=== PATIENT | male | born 1995 | race Two or more races ===

== ENCOUNTER 2024-11-13 16:55 | Inpatient (IN) | payer MEDICAID, SELFPAY ==
[2024-11-13] VITALS (10 sets, daily range): BP systolic 86–120; BP diastolic 49–72; PULSE 60–97; RESP 14–100; TEMP 32.2–36.6; O2SAT 95–100; BMI 22.9
--- NOTE | 2024-11-13 17:04 | EDNOTE_ITS ---
Altered Mental Status RME/HPI General Chief Complaint: Altered Mental Status Stated Complaint: LOW BLOOD SUGAR Time Seen by Provider: 11/13/24 17:05 Arrival date/time: 11/13/24 16:55 Limitations: no limitations RME / HPI RME / HPI narrative: 28 year old male presents to the ED BIBA for evaluation of altered mental status. According to the medics, the patient's family found him unresponsive in his room and attempted to wake him for about 30 minutes before calling 911. Upon arrival, the patient was noted to be wet, which the family state was from placing him in the shower. His blood sugar was checked and found to be low. He was started on D10, after which he became more responsive, though still lethargic. The patient admitted to taking a bottle of naproxen, but the exact quantity and timing are unclear. He also admits to using cocaine. The family reported that he drank 30 beers yesterday. No further history is obtainable at this time. Related Data Allergies Allergy/AdvReac Type Severity Reaction Status Date / Time No Known Allergies Allergy Verified 11/13/24 17:13 Review of Systems Review of Systems ROS Unobtainable: unobtainable due to mental status Past Medical History Past Medical History CARDIAC: Negative Congestive Heart Failure RESPIRATORY: Negative Chronic Obstructive Pulmonary Disease (COPD) GENITOURINARY: Negative Renal Disease ENDOCRINE: Negative Diabetes Mellitus Type 1 or Diabetes Mellitus Type 2 Social History SMOKING STATUS: Current every day smoker ED Exam General Limitations: Present no limitations General appearance: Present other (Lethargic, opens eyes to questioning) Head Head exam: Present atraumatic Eye Eye exam: Present EOMI and other (Pupils 2mm bilaterally); Absent nystagmus ENT ENT exam: Present normal exam, normal oropharynx and mucous membranes moist Neck Neck exam: Present normal inspection, full ROM and trachea midline Chest Chest inspection: Present normal inspection and symmetric chest wall rise Respiratory Respiratory exam: Present normal lung sounds bilaterally Cardiovascular Cardiovascular exam: Present regular rate, normal rhythm and normal heart sounds Abdominal Exam Abdominal exam: Present soft and normal bowel sounds Extremities Exam Extremities exam: Present normal inspection and full ROM Back Exam Back exam: Present normal inspection and full ROM Neurological Exam Neurological exam: Present CN II-XII intact and other (Lethargic, responds to voice ) Psychiatric Psychiatric exam: Present normal affect and normal mood Skin Skin exam: Present warm, dry, intact and normal color Course Quality Measures none Orders Category Date Time Status Bedside Blood Glucose Q4H Care 11/13/24 17:05 Active Elastic Attacher Zigzag NOW Care 11/13/24 17:05 Active Continuous Pulse Oximetry NOW Care 11/13/24 17:05 Completed EKG (ED ONLY) *Do not use* NOW Care 11/13/24 17:05 Completed In and Out Catheter X1 Care 11/13/24 18:06 Completed Initiate Warming Therapy NOW Care 11/13/24 17:13 Active Insert IV NOW Care 11/13/24 17:05 Active Diet Full Liquid Diet 11/13/[address] head/brain wo con Stat Exams 11/13/24 17:07 Taken CXRP [XR chest 1V portable] Stat Exams 11/13/24 17:11 Completed EKG (ED Only) Stat Exams 11/13/24 17:05 Draft ABG [Arterial Blood Gas] Stat Lab 11/13/24 19:53 Completed Acetaminophen Stat Lab 11/13/24 17:30 Completed Acetone [Beta Hydroxybutyrate] Stat Lab 11/13/24 17:30 Completed Alcohol, Blood Medical Stat Lab 11/13/24 17:30 Completed Arterial Blood Gas Stat Lab 11/13/24 17:10 Completed CBC Stat Lab 11/13/24 17:30 Completed Comprehensive Metabolic Panel Stat Lab 11/13/24 17:30 Completed Drug Screen,Urine Stat Lab 11/13/24 18:10 Completed Magnesium Stat Lab 11/13/24 17:30 Completed Partial Thromboplastin Time Stat Lab 11/13/24 17:30 Completed Prothrombin Time with INR Stat Lab 11/13/24 17:30 Completed Salicylate Stat Lab 11/13/24 17:30 Completed Troponin I Stat Lab 11/13/24 17:30 Completed Urinalysis Stat Lab 11/13/24 18:10 Completed ALBUTEROL RT 3ml [Proventil Rt 3ml] Med 11/13/24 17:08 Discontinued 5 mg INH X1 ONE Dextrose 10%-Water 1000 ml [D10w 1000 ml] 1,000 ml Med 11/13/24 17:12 Discontinued IV 100 mls/hr Dextrose 5%-Water [D5w] 500 ml Med 11/13/24 17:45 Discontinued Sodium Bicarb 8.4% 50ml Vial* 88.23 meq IV 100 mls/hr Dextrose 5%-Water [D5w] 500 ml Med 11/13/24 17:45 Discontinued Sodium Bicarb 8.4% 50ml Vial* 88.23 meq IV 100 mls/hr Dextrose 5%-Water [D5w] 500 ml Med 11/14/24 11:24 Discontinued Sodium Bicarb 8.4% 50ml Vial* 88.23 meq IV 100 mls/hr Dextrose 50% Syr [D50w Syringe Abboject] Med 11/13/24 18:45 Discontinued 50 ml IVP X1 ONE Famotidine Inj [Pepcid Inj] Med 11/13/24 17:28 Discontinued 20 mg IVP X1 ONE Pantoprazole Inj [Protonix Inj] Med 11/13/24 17:28 Discontinued 40 mg IVP X1 ONE Sodium Bicarb 8.4% SYR Med 11/13/24 18:05 Discontinued 50 ml IV X1 ONE Sodium Bicarb 8.4% SYR Med 11/13/24 18:14 Discontinued 50 ml IV X1 ONE Sodium Chloride 0.9% 1000 ml [Ns] 1,000 ml Med 11/13/24 17:09 Discontinued IV 999 mls/hr Oxygen Delivery NOW RT 11/13/24 17:05 Active Vital Signs Vital signs: Vital Signs Temperature 90 F L 11/13/24 17:01 Pulse Rate 73 11/13/24 17:01 Respiratory Rate 18 11/13/24 17:01 Blood Pressure 86/52 L 11/13/24 17:01 Pulse Oximetry (%) 100 11/13/24 17:01 Oxygen Delivery Method Nasal Cannula 11/13/24 17:01 Oxygen Flow Rate 2 11/13/24 17:01 Pulse ox is 100% on 2L nasal cannula which is adequate. Altered Mental Status MDM Narrative MDM Narrative:: Marleny Morales am scribing for and in the presence of Dr. Quintero. 1800: Patient signed out to Dr. Ralph pending labs, reassessment, and final disposition. Patient data External records reviewed:: EMS form Clinical information provided by:: EMS Social determinants that could affect healthcare access:: substance use (cocaine use ) Patient has the following chronic illnesses:: None reported How is presenting disease/condition affected by chronic disease/condition?: no chronic disease Evaluation data The following diagnostics were reviewed and interpreted by me:: lab results, radiology exam(s) and EKG tracing(s) (11/13/2024 @ 16:56. Sinus rhythm, rate 66, no STEMI, prolonged QT interval, [place] 145ms, QRS 106ms, QT/QTc 490/503 ) Lab and/or radiology exams considered but not ordered:: None Interpretation Summary: Ordering Physician: Esteban Quintero MD Date of Service: 11/13/24 Procedure(s): XR chest 1V portable Accession Number(s): [id number] cc: Esteban Quintero MD; Raheem Agudelo MD; Haris Abbott MD~ Examination: AP chest single view TECHNIQUE: AP portable supine chest single view Date and time: November 13, 2024 1738 hours INDICATIONS: Coughing and shortness of breath today FINDINGS: Normal heart size. Mild elevation right hemidiaphragm. No pneumonia or pulmonary edema. The osseous structures are intact IMPRESSION: No active disease Dictated By: Haris Abbott MD Signed By: <Electronically signed by Haris Abbott MD in OV> 11/13/24 1745 Medications / Prescriptions Medications or Prescriptions considered but not ordered:: None Medication administrations:: Medication Administration History Acetaminophen (Acetaminophen 325 Mg Tablet) 650 mg PO Q6H PRN PRN Reason: pain and Fever >100.4 Stop: 12/13/24 19:52 Dextrose (Dextrose 50%-Water Inj 50 Ml Syringe) 25 ml IV Q15MIN PRN PRN Reason: BG 50-70 responsive npo pt Stop: 12/13/24 20:28 Dextrose (Dextrose 50%-Water Inj 50 Ml Syringe) 50 ml IV Q15MIN PRN PRN Reason: BG <50 OR BG <70 & pt unresponsive Stop: 12/13/24 20:28 Glucagon (Glucagon Inj 1 Mg Vial) 1 mg IM Q15MIN PRN PRN Reason: BG <70, and no IV access Lactated Ringer's (Lactated Ringers) 1,000 mls @ 100 mls/hr IV .Q10H REBECCA Stop: 11/14/24 16:29 Ondansetron HCl (Ondansetron Inj 2 Mg/Ml Inj 2 Ml) 4 mg IVP Q6H PRN; Protocol PRN Reason: NAUSEA OR VOMITING Stop: 12/13/24 19:52 Pantoprazole Sodium (Pantoprazole Inj 40 Mg Vial) 40 mg IVP QDAY REBECCA Stop: 12/14/24 08:59 Discontinued Medications Albuterol (Albuterol Rt 2.5 Mg/3 Ml Nebu) 5 mg INH X1 ONE Stop: 11/13/24 17:09 Last Admin: 11/13/24 17:22 Dose: 5 mg Documented By: JV Dextrose (Dextrose 50%-Water Inj 50 Ml Syringe) 50 ml IVP X1 ONE Stop: 11/13/24 18:46 Last Admin: 11/13/24 18:51 Dose: 50 ml Documented By: EF Famotidine (Famotidine Inj 10 Mg/Ml Vial 2 Ml) 20 mg IVP X1 ONE Stop: 11/13/24 17:29 Last Admin: 11/13/24 17:49 Dose: 20 mg Documented By: EF Sodium Chloride (Ns) 1,000 mls @ 999 mls/hr IV .Q1H1M ONE Stop: 11/13/24 18:09 Last Infusion: 11/13/24 18:39 Dose: Infused Documented By: Admin: 11/13/24 17:38 Dose: 999 mls/hr Documented By: EF Dextrose (D10w 1000 Ml) 1,000 mls @ 100 mls/hr IV .Q10H REBECCA Stop: 11/14/24 03:11 Last Admin: 11/13/24 17:38 Dose: 100 mls/hr Documented By: EF Sodium Bicarbonate 88.23 meq/ (Dextrose) 588.23 mls @ 100 mls/hr IV .Q5H53M REBECCA Stop: 12/14/24 11:23 Sodium Bicarbonate 88.23 meq/ (Dextrose) 588.23 mls @ 100 mls/hr IV .Q5H53M REBECCA Stop: 11/14/24 11:23 Sodium Bicarbonate 88.23 meq/ (Dextrose) 588.23 mls @ 100 mls/hr IV .Q5H53M REBECCA Stop: 11/14/24 11:23 Last Admin: 11/13/24 18:16 Dose: Not Given Documented By: EF Non-Admin Reason: Cancelled by Provider Dextrose (D10w 1000 Ml) 1,000 mls @ 50 mls/hr IV .Q20H REBECCA Stop: 11/14/24 15:56 Pantoprazole Sodium (Pantoprazole Inj 40 Mg Vial) 40 mg IVP X1 ONE Stop: 11/13/24 17:29 Last Admin: 11/13/24 17:49 Dose: 40 mg Documented By: KAREN Sodium Bicarbonate (Sodium Bicarb Inj 8.4% Syr 50 Ml Syringe) 50 ml IV X1 ONE Stop: 11/13/24 18:06 Last Admin: 11/13/24 18:16 Dose: 50 ml Documented By: EDER Sodium Bicarbonate (Sodium Bicarb Inj 8.4% Syr 50 Ml Syringe) 50 ml IV X1 ONE Stop: 11/13/24 18:15 Last Admin: 11/13/24 18:30 Dose: 50 ml Documented By: EDER See above Consultations Consultation(s) initiated? (list below): No Diagnosis Differential diagnosis altered mental status: alcoholic intoxication, altered mental status, delirium, hypoglycemia, hyponatremia, sepsis and other (Overdose ) Most likely diagnosis given after review of the tests above:: Metabolic acidosis Drug overdose Polysubstance abuse Acute hypoglycemia Acute hypothermia Admission Indicated Admission indicated?: not indicated Admission Request Was there a request for admission?: No Disposition Plan Disposition Plan: other (specify) (Patient signed out to Dr. Ralph pending final disposition ) Critical Care Time Critical Care Time Critical Care Time: Yes Total Critical Care Time (min.): 60 Attestation: The high probability of sudden, clinically significant deterioration in the patient's condition required the highest level of my preparedness to intervene urgently. The services I provided to this patient were to treat and/or prevent clinically significant deterioration. Services included the following: chart data review, reviewing nursing notes and/or old charts, documentation time, supervisor home energy consultant collaboration regarding findings and treatment options, medication orders and management, direct patient care, vital sign assessments and ordering, interpreting and reviewing diagnostic studies and lab tests. Aggregate critical care time includes only time during which I was engaged in work directly related to the patient's care, as described above, whether at bedside or elsewhere in the Emergency Department. It did not include time spent performing other reported procedures or the services of residents, students, nurses or physician assistants. Discharge Plan Plan Patient Disposition: Admit Acute Care w/in Hospital Problem List Clinical Impression: Metabolic acidosis, Hypoglycemia, Drug overdose, Polysubstance abuse, Hypothermia
--- NOTE | 2024-11-13 17:05 | EKG_ITS ---
[facility] Test Date: 2024-11-13 Pat Name: CARLIE KUMARI Department: Room: - Gender: Male [employer] Case [employer]: : 1995 Requested By: Esteban Carter Order Number: [id number] Reading MD: Esteban Carter Measurements Intervals [place] Rate: 66 P: 74 [place]: 145 QRS: 75 QRSD: 106 T: 63 QT: 490 QTc: 515 Interpretive Statements SINUS RHYTHM MODERATE ST DEPRESSION [0.05+ mV ST DEPRESSION] PROLONGED QT INTERVAL CRITICAL TEST RESULT No previous ECG available for comparison /store/S0/[id number]/ecg/[id number].pdf
--- NOTE | 2024-11-13 17:05 | PC.NURSE ---
patient BIBA for possible overdose per ems on scene found an empty bottle of pills of naproxen. patients blood sugar on scene per ems read LOW . ems also states per family patient had about 30 beers yesterday
--- NOTE | 2024-11-13 17:07 | XR_ITS ---
Examination: CT brain head without contrast. 2-D sagittal coronal reconstructions Date and time of exam:November 13, 2024 1932 hours INDICATIONS: Altered mental status today CTDI: vol (mGy):49.7 DLP: (mGycm):744 Technique: Multiple CT axial sections of the brain have been obtained, 5 mm slice thickness. Contrast has not been administered. 2-D sagittal, coronal reconstructions have been obtained Low dose protocols were performed. One or more of the following dose reduction techniques were used; automated exposure control, adjustment of the mA and/or KV according to patient size, use of iterative reconstruction technique. Findings: No significant ventricular enlargement. Intra-axial or extra-axial hemorrhage density is not seen. No mass effect or midline shift Basal cisterns are not remarkable. Fourth ventricle is midline. Cranial vault intact. Impression: Negative for acute hemorrhage, mass effect or midline shift Advise clinical correlation and follow up accordingly
--- NOTE | 2024-11-13 17:11 | XR_ITS ---
Examination: AP chest single view TECHNIQUE: AP portable supine chest single view Date and time: November 13, 2024 1738 hours INDICATIONS: Coughing and shortness of breath today FINDINGS: Normal heart size. Mild elevation right hemidiaphragm. No pneumonia or pulmonary edema. The osseous structures are intact IMPRESSION: No active disease
[2024-11-13] MEDS: ALBUTEROL RT 2.5 MG/3 ML NEBU 5 MG INH (17:22)
--- NOTE | 2024-11-13 17:26 | PC.NURSE ---
poison control contacted spoke with dr herrera. per MD watch for Gi symptoms n/v, metabolic acidosis. keep bp and o2 sats up. give d50 bolus as needed and d10 drip as needed. if patient continues having recurrent episodes of hypoglycemic keep patient for observation 24hrs
[2024-11-13 17:28] LABS: Base Excess -15 (-3-3); HCO3 13 mEq/L (20-26); Inspired O2, VO2 Liters 2 L/min; O2 Saturation 99 % (91-98); PCO2 40 mmHg (32.0-48.0); PO2 169 mmHg (83-108)
[2024-11-13 17:32] LABS: Puncture Site Right Radial; pH, Arterial 7.13 (7.35-7.45)
[2024-11-13 17:33] LABS: Allen Test Not Performed
[2024-11-13 17:38] LABS: Beta Hydroxybutyrate 0.4 mmol/L (<0.6)
[2024-11-13] MEDS: DEXTROSE 10%-WATER 1000 ML 1,000 ML 100 ML IV (17:38)
[2024-11-13] MEDS: SODIUM CHLORIDE 0.9% 1000 ML 1,000 ML 999 ML IV (17:38)
[2024-11-13 17:41] LABS: Basophils # (Auto) 0.1 Thou/mm3 (0.0-0.2); Basophils % (Auto) 0 % (0-2.5); Eosinophils % (Auto) 0 % (0-10); Hematocrit 37.4 % (41.0-53.0); Hemoglobin 13.1 g/dL (13.5-16.0); Immature Granulocytes % (Auto) 2 % (0-0); Immature Granulocytes Auto 0.21 Thou/mm3 (0.00-0.00); Lymphocytes # (Auto) 2.9 Thou/mm3 (1.0-4.8); Lymphocytes % (Auto) 26 % (10-50); Mean Corpuscular Hemoglobin 33.3 pg (25.0-35.0); Mean Corpuscular Volume 95 fL (80-100); Monocytes # (Auto) 1.1 Thou/mm3 (0.0-0.8); Monocytes % (Auto) 9 % (0-12); Neutrophils # (Auto) 7.1 Thou/mm3 (1.8-7.7); Neutrophils % (Auto) 63 % (37-80); Nucleated Red Blood Cell % 0 /100 WBC (0); Platelet Count 210 Thou/mm3 (140-440); RDW Standard Deviation 47.5 fL (35.1-43.9); Red Blood Count 3.93 Miln/mm3 (4.50-5.90); White Blood Count 11.4 Thou/mm3 (3.8-10.6)
[2024-11-13] MEDS: FAMOTIDINE INJ 10 MG/ML VIAL 2 ML 20 MG IVP (17:49)
[2024-11-13] MEDS: PANTOPRAZOLE INJ 40 MG VIAL IVP (17:49)
[2024-11-13 17:52] LABS: INR 1.2 (0.9-1.3); Partial Thromboplastin Time 30.2 Seconds (22.0-36.0)
[2024-11-13 18:00] LABS: Acetaminophen < 2.0 mcg/mL (10.0-20.0); Alanine Aminotransferase 10 U/L (10-49); Albumin, Serum 3.7 gm/dL (3.5-5.0); Albumin/Globulin Ratio 1.7 (1.2-2.2); Alcohol, Blood Medical 166.7 mg/dL (0-10.0); Alkaline Phosphatase 95 U/L (46-116); Anion Gap 19 (7-16); BUN/Creatinine Ratio 4 Ratio (12-20); Bilirubin,Total 0.5 mg/dL (0.3-1.2); Blood Urea Nitrogen 6 mg/dL (9-23); Calcium 7.4 mg/dL (8.3-10.6); Calcium (Corrected) 7.6 mg/dL (8.5-10.1); Carbon Dioxide 15.1 mMol/L (20.0-31.0); Chloride 114 mMol/L (98-107); Creatinine (Component) 1.4 mg/dL (0.6-1.3); Estimated Creatinine Clearance 79.8 mL/min (>60); Globulin 2.2 gm/dL (2.3-3.5); Glucose 89 mg/dL (74-106); Magnesium 2.6 mg/dL (1.6-2.6); Osmolality,Calculated 290 (275-295); Potassium 3.4 mMol/L (3.4-5.1); Salicylate < 3.0 mg/dL; Sodium 148 mMol/L (136-145); Total Protein 5.9 gm/dL (5.7-8.2); Troponin I < 0.020 ng/mL (0.0-0.045); eGFR > 60 See Note
[2024-11-13 18:15] LABS: Collection Type, Urine Clean Catch
[2024-11-13] MEDS: Sodium Bicarb Inj 8.4% SYR 50 ML SYRINGE IV ×2 (18:16→18:30)
[2024-11-13 18:38] LABS: Bacteria,Urine Rare; Bilirubin,Urine Negative (Negative); Blood,Urine 2+ (Negative); Clarity,Urine Turbid (Clear/Hazy); Color,Urine Lt-Yellow (Lt Yel-Yel); Glucose, Urine 1+ (Negative); Granular Casts,Urine 1 /hpf (0-1); Hyaline Casts,Urine < 1 /hpf (0-1); Ketones,Urine Negative (Negative); Leukocyte Esterase,Urine Negative (Negative); Nitrite,Urine Negative (Negative); Protein,Urine 2+ (Neg - Trace); RBC,Urine 2 /hpf (0-3); Specific Gravity,Urine 1.013 (1.001-1.035); Squamous Epithelial Cell,Urine 2 /hpf (0-5); Urobilinogen,Urine Negative mg/dL (0.0-1.0); WBC,Urine 12 /hpf (0-5)
--- NOTE | 2024-11-13 18:44 | PD.EDADDENDU ---
Emergency Room Addendum <Libra Lacy - Last Filed: 11/13/24 21:18> Addendum Narrative: I took over the care from previous shift physician at 6 PM on 11/13/2024. See previous notes for complete H & P and ED course. I reviewed all diagnostic test results. Sinus rhythm (66 bpm) with nonspecific ST-T changes.? Magnus Ralph MD My interpretation of the chest x-ray is NAD. My review of the Head/Brain CT report is NAD. Advise clinical correlation and follow up accordingly. Blood tests and urine tests show positive cocaine and ethyl alcohol 166.7. ABG pH 7.13, AbG pO2 169, ABG HCO3 13, ABG Base Excess -15. WBC 11.4, RBC 3.93, Hgb 13.1, Hct 37.4. Sodium 148, Chloride 114, Carbon Dioxide 15.1, Anion Gap 19, BUN 6, Creatinine 1.4, BUN/Creatinine Ratio 4, Calcium 7.4, Corrected Calcium 7.6, Globulin 2.2. Urine turbid, Protein 2+, Glucose 1+, Blood 2+, WBC 12. Lactic Acid 16. Repeat Blood Gas: ABG pH 7.22, ABG pCO2 158, ABG HCO3 14, ABG O2 99%, ABG Base Excess -13. Diagnoses include: Overdose, AMS, Metabolic acidosis. Treatment here included Proventil, IV fluid, D50, Pepcid, Protonix, Sodium Bicarb. 1799 Hold. I discussed the case with our hospitalist. About the presentation and exam and diagnostics and treatments here. And need of further care in the hospital. Will accept the patient. Magnus Ralph MD <Magnus Ralph MD - Last Filed: 11/13/24 22:45> Addendum Narrative: I took over the care from previous shift physician at 6 PM on 11/13/2024. See previous notes for complete H & P and ED course. I reviewed all diagnostic test results. Diagnoses include: #Acute Encephalopathy #Drug overdose #High anion gap metabolic acidosis #Respiratory acidosis #IVORY #Hx of previous suicidal attempts #Hx of depression #Leukocytosis #Polysubstance use #Alcohol use #Cocaine use I discussed the case with our hospitalist. About the presentation and exam and diagnostics and treatments here. And need of further care in the hospital. Will accept the patient. Magnus Ralph MD
[2024-11-13] MEDS: DEXTROSE 50%-WATER INJ 50 ML SYRINGE IVP (18:51)
[2024-11-13 18:55] LABS: Amphetamine/Methamp Scrn,U Negative (Negative); Barbiturate Screen,Urine Negative (Negative); Benzodiazepines Screen,Urine Negative (Negative); Benzoylecgonine Screen, Ur Positive (Negative); Fentanyl Screen,Urine Negative (Negative); Opiate Screen,Urine Negative (Negative); THC Screen,Urine Negative (Negative)
--- NOTE | 2024-11-13 19:57 | EKG_ITS ---
[facility] Test Date: 2024-11-13 Pat Name: CARLIE KUMARI Department: Room: - Gender: Male [facility] Lpn: [facility] : 1995 Requested By: Kwabena Funk Order Number: [id number] Reading MD: Kwabena Funk Measurements Intervals [place] Rate: 98 P: 57 [place]: 139 QRS: 53 QRSD: 93 T: 37 QT: 390 QTc: 500 Interpretive Statements SINUS RHYTHM Compared to ECG 11/13/2024 16:56:53 ST (T wave) deviation no longer present Prolonged QT interval no longer present /store/NU/[id number]/[id number]
--- NOTE | 2024-11-13 19:59 | PD.RESHP ---
Documentation for date of: 11/13/24 HPI History of Present Illness Chief complaint: OD History of present illness: 28-year-old male with past medical history of previous suicidal attempts, depression, and previous hospitalizations due to suicidal systems was admitted to the hospital on 11/13/2024 to come to the ED for possible overdose. Per chart review patient came into the ED after he was found unresponsive at his home and they stated that the patient had taken a bottle of naproxen. On assessment patient was irritated and was confrontational when asked about the events that led him to come to the hospital. He mentioned that he was just drinking yesterday with some friends that he drank more than 30 beers and also did some cocaine, but afterwards he just went to sleep and does not remember anything else afterwards. Patient stated that he does not recall taking any pills this morning and that the only thing he remembers was laying in his bed going to sleep and then today he woke up in the ambulance. He stated that he did not try to himself this time and that he has not had any suicidal or homicidal ideation at the current time. He mentioned that he has tried to hurt himself in the past with razors, but as of recently that he has not tried hurting himself. He did mention that in the past around 3 years ago he was hospitalized under psychiatric hold due to similar presentation yesterday. Patient stated that he does have some family history of psychiatric disorders in his older brother, but there are no previous suicides in his family. Patient also stated that he did not have any stressors at this time as he did not have any financial or family stress at this time. He does not take any medications for depression and he is only seeing a therapist for this. Patient admits to taking around 2 beers a day and last beer was yesterday evening. Otherwise he also admits to taking cocaine yesterday. He mentioned that today he had some nausea and vomiting, but otherwise no other complaints. ED course: Initially came in hypotensive and hypothermic. Initial labs were relevant for mild leukocytosis, high anion gap metabolic acidosis with respiratory acidosis, IVORY, UA positive for blood, and U-Tox positive for cocaine and alcohol levels were also elevated. Initial imaging included chest x-ray which was unremarkable, and head CT which was pending at the time of admission, but was reviewed and does not seem to have any gross issues. PMH: As above Medications: None Surgical Hx: None Social Hx: Admits alcohol, cocaine, and smoking FMH: Brother with schizophrenia Review of Systems Review of Systems Narrative Review of Systems: Constitutional: Denies sweats, Denies weight loss/gain, Denies fever, Denies chills. HEENT: Denies hearing loss, Denies ear pain, Denies postnasal drip, Denies double vision, Denies blurry vision. Respiratory: Denies shortness of breath, Denies cough, Denies wheezing. Cardiovascular: Denies chest pain, Denies palpitations, Denies sudden loss of consciousness. GI: Denies blood in stool, Denies constipation, Denies abdominal pain, Denies difficulty swallowing, Admits nausea and vomit. : Denies urinary incontinence, Denies pain while urinating, Denies increased urinary frequency. MSK: Denies joint pain, Denies joint swelling, Denies numbness. Skin: Denies rash, Denies itching, Denies easy bruising. Neuro: Denies headaches, Denies dizziness, Denies seizures, Admits loss of consciousness. Past Medical History Past Medical History CARDIAC: Negative Congestive Heart Failure RESPIRATORY: Negative Chronic Obstructive Pulmonary Disease (COPD) GENITOURINARY: Negative Renal Disease ENDOCRINE: Negative Diabetes Mellitus Type 1 or Diabetes Mellitus Type 2 Social History SMOKING STATUS: Current every day smoker Exam Vital Signs Temp Pulse Resp BP Pulse Ox O2 Del Method O2 Flow Rate 96.8 F 89 16 119/57 L 100 Room Air 2 11/13/24 19:53 11/13/24 19:53 11/13/24 19:53 11/13/24 19:53 11/13/24 19:53 11/13/24 19:53 11/13/24 18:17 Narrative Exam General: A/O x3, no acute distress Eyes: PERRL, EOMI. Anicteric, vision grossly intact. Ears: No ear pain, no ear discharge, Hearing grossly intact. Nose: No nasal discharge. Mouth/Throat: Moist mucous membranes, no redness, no lesions. Neck: Neck supple, non-tender, no cervical lymphadenopathy. Lungs: Clear CHRISTINE to auscultation and percussion, No accessory muscle use. Cardio: Normal S1/S2, regular rhythm, no murmurs, no JVD Abdomen: Soft, non-tender, no palpable masses, peristalsis present, no guarding or rebound. Extremities: Symmetrical, no significant deformities, no peripheral edema , non-tender, peripheral pulses presents. Skin: Multiple linear lesions in CHRISTINE UE and some in forehead which would be consistent with cuts. Neuro: No focal neurological deficits. Motor and sensory intact Psych: irritable mood, confrontational Results: Labs 11/13/24 17:30 11/13/24 20:35 Labs: Short CBC 11/13/24 Range/Units 17:30 WBC 11.4 H (3.8-10.6) Thou/mm3 Hgb 13.1 L (13.5-16.0) g/dL Hct 37.4 L (41.0-53.0) % Plt Count 210 (140-440) Thou/mm3 BMP 11/13/24 17:30 Sodium 148 H Potassium 3.4 Chloride 114 H Carbon Dioxide 15.1 L BUN 6 L Creatinine 1.4 H Glucose 89 Calcium 7.4 L Cardiac Enzymes 11/13/24 Range/Units 17:30 Troponin I < 0.020 (0.0-0.045) ng/mL Liver Function 11/13/24 Range/Units 17:30 Total Bilirubin 0.5 (0.3-1.2) mg/dL ALT 10 (10-49) U/L Alkaline Phosphatase 95 (46-116) U/L Albumin 3.7 (3.5-5.0) gm/dL Urine 11/13/24 Range/Units 18:10 Urine Color Lt-Yellow (Lt Yel-Yel) Urine Clarity Turbid A (Clear/Hazy) Urine pH 6.0 (5.0-7.0) Ur Specific [place] 1.013 (1.001-1.035) Urine Protein 2+ A (Neg - Trace) Urine Glucose (UA) 1+ A (Negative) ABG Interpretation ABG results: 11/13/24 17:10 ABG pH 7.13 L* ABG pCO2 40 ABG pO2 169 H ABG HCO3 13 L ABG O2 Saturation 99 H ABG Base Excess -15 L Quality Measures Quality Measures none Medications Home Medications and Allergies Allergies Allergy/AdvReac Type Severity Reaction Status Date / Time No Known Allergies Allergy Verified 11/13/24 17:13 Visit Medications Acetaminophen (Acetaminophen 325 Mg Tablet) 650 mg PO Q6H PRN PRN Reason: pain and Fever >100.4 Stop: 12/13/24 19:52 Ondansetron HCl (Ondansetron Inj 2 Mg/Ml Inj 2 Ml) 4 mg IVP Q6H PRN; Protocol PRN Reason: NAUSEA OR VOMITING Stop: 12/13/24 19:52 Pantoprazole Sodium (Pantoprazole Inj 40 Mg Vial) 40 mg IVP QDAY [facility] Stop: 12/14/24 08:59 Discontinued Medications Albuterol (Albuterol Rt 2.5 Mg/3 Ml Nebu) 5 mg INH X1 ONE Stop: 11/13/24 17:09 Last Admin: 11/13/24 17:22 Dose: 5 mg Dextrose (Dextrose 50%-Water Inj 50 Ml Syringe) 50 ml IVP X1 ONE Stop: 11/13/24 18:46 Last Admin: 11/13/24 18:51 Dose: 50 ml Famotidine (Famotidine Inj 10 Mg/Ml Vial 2 Ml) 20 mg IVP X1 ONE Stop: 11/13/24 17:29 Last Admin: 11/13/24 17:49 Dose: 20 mg Sodium Chloride (Ns) 1,000 mls @ 999 mls/hr IV .Q1H1M ONE Stop: 11/13/24 18:09 Last Infusion: 11/13/24 18:39 Dose: Infused Dextrose (D10w 1000 Ml) 1,000 mls @ 100 mls/hr IV .Q10H [facility] Stop: 11/14/24 03:11 Last Admin: 11/13/24 17:38 Dose: 100 mls/hr Sodium Bicarbonate 88.23 meq/ (Dextrose) 588.23 mls @ 100 mls/hr IV .Q5H53M [facility] Stop: 12/14/24 11:23 Sodium Bicarbonate 88.23 meq/ (Dextrose) 588.23 mls @ 100 mls/hr IV .Q5H53M [facility] Stop: 11/14/24 11:23 Sodium Bicarbonate 88.23 meq/ (Dextrose) 588.23 mls @ 100 mls/hr IV .Q5H53M [facility] Stop: 11/14/24 11:23 Last Admin: 11/13/24 18:16 Dose: Not Given Pantoprazole Sodium (Pantoprazole Inj 40 Mg Vial) 40 mg IVP X1 ONE Stop: 11/13/24 17:29 Last Admin: 11/13/24 17:49 Dose: 40 mg Sodium Bicarbonate (Sodium Bicarb Inj 8.4% Syr 50 Ml Syringe) 50 ml IV X1 ONE Stop: 11/13/24 18:06 Last Admin: 11/13/24 18:16 Dose: 50 ml Sodium Bicarbonate (Sodium Bicarb Inj 8.4% Syr 50 Ml Syringe) 50 ml IV X1 ONE Stop: 11/13/24 18:15 Last Admin: 11/13/24 18:30 Dose: 50 ml Assessment & Plan Plan 28-year-old male with past medical history of previous suicidal attempts, depression, and previous hospitalizations due to suicidal systems was admitted to the hospital on 11/13/2024 for acute encephalopathy likely secondary to drug overdose, high anion gap metabolic acidosis with respiratory acidosis, and IVORY. #Acute Encephalopathy, resolved #Drug overdose #High anion gap metabolic acidosis #Respiratory acidosis #IVORY #Hx of previous suicidal attempts #Hx of depression Patient came in after being found unresponsive in his home after he apparently took a bottle of naproxen. Patient does not recall taking any pills and last thing he recalls was going to bed yesterday evening. Patient's pH was initially 7.13 on ABG with a PCO2 of 40 and PO2 of 169 which later on after patient got fluids and got sodium bicarb his pH went up to 7.22 with a pCO2 of 34. Patient did have a anion gap of 19 with bicarb of 15.1 and per Joe formula pCO2 should have been 29-33 therefore he was having some underlying respiratory acidosis as well. Patient's creatinine came back at 1.4 most likely prerenal in the setting of dehydration given nausea and vomiting Spoke with poison control who stated that at this time given that his acetaminophen and salicylates were negative and only drug of consumption was naproxen treatment was supportive and just monitor his anion gap. ED gave sodium bicarb and started D10, but no need as per poison control unless becomes hypoglycemic Plan: Will continue with blood glucose checks every 4 hours IV fluids Hypoglycemia protocol ordered Patient is currently on 1798 hold and will require crisis medical clearance. Avoid nephrotoxic agent Renally dose medications Repeat CMP for 9 PM today Will continue to monitor #Leukocytosis Patient WBC 11.4 most likely reactive Will continue to monitor #Polysubstance use #Alcohol use #Cocaine use Patient was positive for alcohol and cocaine Patient takes normally around 2 or 3 beers a day and last drink was yesterday evening, but yesterday he did drink around 30 beers Plan: Will continue to monitor Consider CIWA protocol tomorrow Disposition: Patient admitted to [facility] for OD Diet: Clear liquid and advance as tolerated GI prophylaxis: protonix DVT prophylaxis: SCDs Code: Full Case disclosed with Attending Dr. Virginie Funk PGY1 Disclaimer: Even though this this note was dictated by speech recognition and even though it was carefully revised there may still be minor errors in animal rehabilitator due to voice recognition software. Attending Provider Attestation/Addendum I have examined the patient, reviewed labs and imaging findings, discussed the case with the resident(s), and reviewed entered orders. I agree with the plan of care as outlined in this note, with these additional summaries/recommendations: After examination of the patient and review of the clinical data, I feel that this patient needs admission to the hospital for further treatment and evaluation. Patient is a 28-year-old male with a medical history of previous suicide attempt who presents to [facility] emergency department on 11/13/2024 with chief complaint of altered mental status. Patient seen at bedside. Patient's toxic encephalopathy has resolved. Most likely secondary to polysubstance abuse from alcohol use, cocaine, and NSAID ingestion. Urine toxicology positive for cocaine and ethyl alcohol level 166.7. He is now alert and oriented x 3 but had a low GCS of approx.. 3 on arrival. Patient reports he was drinking heavily and had approximately 30 beers and blacked out. He does not remember anything including taking roughly 30 naproxen pills. He denies any suicidal ideation or wanting to hurt himself at this time but does endorse previous suicide attempts years ago with razor blade. Patient also noted to have multiple razor cuts on forearm that appear recent. Discussed with patient that he will be placed on a hold until medically cleared. Poison control was contacted for ingestion of naproxen pills and recommended monitoring for GI symptoms and if develops hypoglycemia he should be admitted to the hospital for further monitoring and treatment. Patient unfortunately did develop hypoglycemia and was started on D10 drip. Poison control recontacted and in agreement to discontinue D10 and continue frequent monitoring of blood sugars. We will start diet to see if patient can tolerate. Patient also found to be hypothermic with temperature 90.0 ?F on admission and started on Tanesha hugger. Temperature now 96.8 Fahrenheit and will DC Tanesha hugger and monitor. Patient diagnosed with acute kidney injury most likely prerenal azotemia from dehydration and poor oral intake versus NSAID induced. Cr 1.4 on admission. Start IV maintenance fluids and avoid nephrotoxic agents plus renally dose medications. Repeat renal panel in AM. Patient diagnosed with anion gap metabolic acidosis most likely secondary to lactic acidosis. Order lactic acid and patient received multiple amps of bicarb in the ED. ABG revealed pH 7.13, ALZ680, PO2 169, and bicarb 13.7. No further bicarb needed at this time and continue IV fluids. Repeat renal panel in AM. Mild hypocalcemia present and replacement given. Patient reports he drinks 3 tall boys of beer a day and has never been hospitalized for alcohol withdrawal. We will defer CIWA for now given patient's altered mental status on admission although low threshold to initiate. Patient updated of the plan and in agreement. All questions answered to satisfaction. Please see residents note for additional details and management. Dr. Virginie MD
[2024-11-13 20:02] LABS: Base Excess -13 (-3-3); HCO3 14 mEq/L (20-26); Inspired Oxygen, FIO2 21 %; O2 Saturation 99 % (91-98); PCO2 34 mmHg (32.0-48.0); PO2 158 mmHg (83-108); pH, Arterial 7.22 (7.35-7.45)
[2024-11-13 20:14] LABS: Allen Test Performed/OK; Puncture Site Right Radial
[2024-11-13 21:09] LABS: Alanine Aminotransferase 21 U/L (10-49); Albumin, Serum 4.6 gm/dL (3.5-5.0); Albumin/Globulin Ratio 1.8 (1.2-2.2); Alkaline Phosphatase 121 U/L (46-116); Anion Gap 27 (7-16); BUN/Creatinine Ratio 5 Ratio (12-20); Bilirubin,Total 0.6 mg/dL (0.3-1.2); Blood Urea Nitrogen 9 mg/dL (9-23); Calcium 8.2 mg/dL (8.3-10.6); Calcium (Corrected) 8.2 mg/dL (8.5-10.1); Chloride 103 mMol/L (98-107); Creatinine (Component) 1.7 mg/dL (0.6-1.3); Estimated Creatinine Clearance 65.7 mL/min (>60); Globulin 2.6 gm/dL (2.3-3.5); Glucose 192 mg/dL (74-106); Osmolality,Calculated 292 (275-295); Potassium 4.8 mMol/L (3.4-5.1); Sodium 145 mMol/L (136-145); Total Protein 7.2 gm/dL (5.7-8.2); eGFR 56 See Note
[2024-11-13 21:10] LABS: Carbon Dioxide 15.1 mMol/L (20.0-31.0)
[2024-11-13] MEDS: RINGERS LACTATED 1000 ML 1,000 ML 100 ML IV (21:34)
[2024-11-13] MEDS: ONDANSETRON INJ 2 MG/ML INJ 2 ML 4 MG IVP (22:20)
--- NOTE | 2024-11-13 22:34 | PC.NURSE ---
REPORT CALLED ROOM NOT READY, WILL CALL BACK WHEN RM READY.
[2024-11-13 23:40] LABS: Lactate (Lactic Acid) 14.1 mMol/L (0.4-2.0)
[2024-11-13 23:43] LABS: Reflex Lactate? Y
[2024-11-14] VITALS (10 sets, daily range): BP systolic 97–119; BP diastolic 60–75; PULSE 75–101; RESP 13–97; TEMP 36.3–36.9; O2SAT 94–97; BMI 23.6
--- NOTE | 2024-11-14 00:03 | PC.NURSE ---
DR. JOVEL NOTIFIED OF LACTIC ACID 14.1. NEW ORDERS PLACED BY MD. PT CONTINUES WITH NAUSEA. NEW EKG BEING DONE AT BEDSIDE PER MD REQUEST. NEW ORDERS TO BE PLACED BY MD FOR NAUSEA WELL
[2024-11-14] MEDS: SODIUM BICARB INJ 8.4% 1 mEq/ML 50 ML VIAL 50 MEQ IV (00:05)
[2024-11-14] MEDS: METOCLOPRAMIDE INJ 5 MG/ML VIAL 2 ML IVP (00:49)
[2024-11-14 01:48] LABS: Lactate (Lactic Acid) 11.3 mMol/L (0.4-2.0)
[2024-11-14 02:11] LABS: Albumin, Serum 4.8 gm/dL (3.5-5.0); Anion Gap 22 (7-16); BUN/Creatinine Ratio 8 Ratio (12-20); Blood Urea Nitrogen 13 mg/dL (9-23); Calcium 8.6 mg/dL (8.3-10.6); Calcium (Corrected) 8.6 mg/dL (8.5-10.1); Carbon Dioxide 20.6 mMol/L (20.0-31.0); Chloride 99 mMol/L (98-107); Creatinine (Component) 1.6 mg/dL (0.6-1.3); Estimated Creatinine Clearance 69.8 mL/min (>60); Glucose 123 mg/dL (74-106); Osmolality,Calculated 284 (275-295); Phosphorous 3.5 mg/dL (2.4-5.1); Potassium 4.6 mMol/L (3.4-5.1); Sodium 142 mMol/L (136-145); eGFR > 60 See Note
[2024-11-14 02:37] LABS: Reflex Lactate? Y
[2024-11-14 03:39] LABS: Lactate (Lactic Acid) 4.9 mMol/L (0.4-2.0)
[2024-11-14 04:45] LABS: Reflex Lactate? Y
[2024-11-14 05:57] LABS: Basophils % (Auto) 0 % (0-2.5); Eosinophils % (Auto) 0 % (0-10); Hematocrit 39.2 % (41.0-53.0); Hemoglobin 14.2 g/dL (13.5-16.0); Immature Granulocytes % (Auto) 1 % (0-0); Immature Granulocytes Auto 0.09 Thou/mm3 (0.00-0.00); Lymphocytes # (Auto) 1.8 Thou/mm3 (1.0-4.8); Lymphocytes % (Auto) 18 % (10-50); Mean Corpuscular HGB Conc 36.2 g/dl (31.0-37.0); Mean Corpuscular Hemoglobin 32.8 pg (25.0-35.0); Mean Corpuscular Volume 91 fL (80-100); Monocytes # (Auto) 1.5 Thou/mm3 (0.0-0.8); Monocytes % (Auto) 14 % (0-12); Neutrophils # (Auto) 6.8 Thou/mm3 (1.8-7.7); Neutrophils % (Auto) 66 % (37-80); Nucleated Red Blood Cell % 0 /100 WBC (0); Platelet Count 217 Thou/mm3 (140-440); RDW Standard Deviation 44.3 fL (35.1-43.9); Red Blood Count 4.33 Miln/mm3 (4.50-5.90); White Blood Count 10.2 Thou/mm3 (3.8-10.6)
[2024-11-14 06:32] LABS: Reflex Lactate? Y
[2024-11-14 06:49] LABS: Alanine Aminotransferase 18 U/L (10-49); Albumin, Serum 4.2 gm/dL (3.5-5.0); Albumin/Globulin Ratio 1.8 (1.2-2.2); Alkaline Phosphatase 101 U/L (46-116); Anion Gap 16 (7-16); BUN/Creatinine Ratio 7 Ratio (12-20); Bilirubin,Total 0.4 mg/dL (0.3-1.2); Blood Urea Nitrogen 11 mg/dL (9-23); Calcium 8.2 mg/dL (8.3-10.6); Calcium (Corrected) 8.2 mg/dL (8.5-10.1); Carbon Dioxide 25.1 mMol/L (20.0-31.0); Chloride 99 mMol/L (98-107); Creatinine (Component) 1.5 mg/dL (0.6-1.3); Estimated Creatinine Clearance 74.6 mL/min (>60); Globulin 2.4 gm/dL (2.3-3.5); Glucose 81 mg/dL (74-106); Magnesium 1.3 mg/dL (1.6-2.6); Osmolality,Calculated 277 (275-295); Sodium 140 mMol/L (136-145); Total Protein 6.6 gm/dL (5.7-8.2); eGFR > 60 See Note
[2024-11-14 07:58] LABS: Lactate (Lactic Acid) 2.7 mMol/L (0.4-2.0)
[2024-11-14] MEDS: Magnesium Sulfate 4 GM Ivpb 4 GM/50 ML BAG IV (08:36)
[2024-11-14] MEDS: PANTOPRAZOLE INJ 40 MG VIAL IVP (08:37)
[2024-11-14] MEDS: RINGERS LACTATED 1000 ML 1,000 ML 100 ML IV (10:32)
--- NOTE | 2024-11-14 10:34 | PC.SS ---
Patient is 28YO male, reason for visit: overdose. met with patient and his spouse Elvira Romero, to complete initial assessment. Patient confirmed his demographic information. Patient stated his spouse Elvira Romero [phone] is his primary medical surrogate decision maker. Patient stated he is independent with ADL completion and ambulation as well. [facility] PCP: VINOD, last appt. was over 1 year ago. Patient stated he would like to return home at discharge, spouse Elvira Romero, to transport. Patient will need a mental health evaluation once medically cleared. Discharge plan: Pending due to mental health evaluation. Next of Kin: Spouse Elvira Romero [phone].
[2024-11-14 10:57] LABS: Reflex Lactate? Y
[2024-11-14 11:29] LABS: Lactic Acid, 3 HR 1.2 mMol/L (0.4-2.0)
[2024-11-14 12:38] LABS: Albumin, Serum 3.9 gm/dL (3.5-5.0); Anion Gap 15 (7-16); BUN/Creatinine Ratio 8 Ratio (12-20); Blood Urea Nitrogen 11 mg/dL (9-23); Calcium 8.2 mg/dL (8.3-10.6); Calcium (Corrected) 8.3 mg/dL (8.5-10.1); Carbon Dioxide 23.8 mMol/L (20.0-31.0); Chloride 97 mMol/L (98-107); Creatinine (Component) 1.4 mg/dL (0.6-1.3); Glucose 78 mg/dL (74-106); Osmolality,Calculated 270 (275-295); Phosphorous 3.6 mg/dL (2.4-5.1); Sodium 136 mMol/L (136-145); eGFR > 60 See Note
--- NOTE | 2024-11-14 14:30 | PC.SS ---
Rounding note: Patient has history of past suicide attempts. Will be medically clear for mental health eval 11/15/24. If cleared by OTHER SPORTS COACH OR INSTRUCTOR, patient to discharge home with spouse.
--- NOTE | 2024-11-14 14:42 | PD.RESPRO ---
Documentation for date of: 11/14/24 Subjective Subjective Interval history: Patient examined at bedside. He has one-on-one sitter. Has no major complaints. Will advance diet to liquids. CIWA score 2, denies any suicidal ideation at this time. Vital stable, creatinine downtrended 1.5, repleted magnesium. Lactic acidosis resolved. Will continue fluids in setting of IVORY. Crisis evaluation to be completed tomorrow. Exam Vital Signs Temp Pulse Resp BP Pulse Ox O2 Del Method O2 Flow Rate 97.3 F 87 14 110/68 97 Room Air 2 11/14/24 12:00 11/14/24 12:00 11/14/24 12:11/14/24 12:11/14/24 12:11/14/24 12:11/13/24 18:17 Narrative Exam General: younge male, No acute distress, cooperative HEENT: NCAT, No JVD noted. Mucosa moist. Pupils are equal and reactive to light bilaterally Cardiovascular: Normal S1 and S2. Regular rate and rhythm. Respiratory: Lungs are clear to auscultation bilaterally. No wheezing or crackles heard. Abdomen: Soft, nontender, not distended, normal bowel sounds. Skin: Warm to touch, dry, no rashes noted, has scars all over arms, some cutting scars noticed on forehead Musculoskeletal: No gross injuries. Able to move all 4 extremities. No pitting edema Neuro: Alert and oriented x3. No focal neuro deficits. Psych: Normal affect and mood Objective Labs 11/15/24 05:04 11/15/24 05:04 Labs: Laboratory Results - last 24 hr 11/13/24 11/13/24 11/13/24 17:10 17:30 18:10 WBC 11.4 H RBC 3.93 L Hgb 13.1 L Hct 37.4 L MCV 95 MCH 33.3 MCHC 35.0 RDW Std Deviation 47.5 H Plt Count 210 Neut % (Auto) 63 Lymph % (Auto) 26 Jones % (Auto) 9 Eos % (Auto) 0 Baso % (Auto) 0 Neut # (Auto) 7.1 Lymph # (Auto) 2.9 Jones # (Auto) 1.1 H Eos # (Auto) 0.0 Baso # (Auto) 0.1 Immature Gran # (Auto) 0.21 H Absolute Nucleated RBC 0.00 Immature Gran % 2 H Nucleated RBC % 0 PT 13.0 H INR 1.2 APTT 30.2 Puncture Site Right Radial ABG pH 7.13 L* ABG pCO2 40 ABG pO2 169 H ABG HCO3 13 L ABG O2 Saturation 99 H ABG Base Excess -15 L Oxygen Liter Flow 2 FiO2 Sodium 148 H Potassium 3.4 Chloride 114 H Carbon Dioxide 15.1 L Anion Gap 19 H BUN 6 L Creatinine 1.4 H Estim Creat Clear Calc 79.8 eGFR > 60 BUN/Creatinine Ratio 4 L Glucose 89 Calculated Osmolality 290 Lactic Acid Calcium 7.4 L Corrected Calcium 7.6 L Phosphorus Magnesium 2.6 Total Bilirubin 0.5 ALT 10 Alkaline Phosphatase 95 Troponin I < 0.020 Total Protein 5.9 Albumin 3.7 Globulin 2.2 L Albumin/Globulin Ratio 1.7 Beta-Hydroxybutyrate/Acetoacetate 0.4 Ur Collection Type Clean Catch Urine Color Lt-Yellow Urine Clarity Turbid A Urine pH 6.0 Ur Specific [place] 1.013 Urine Protein 2+ A Urine Glucose (UA) 1+ A Urine Ketones Negative Urine Blood 2+ A Urine Nitrite Negative Urine Bilirubin Negative Urine Urobilinogen (Auto) Negative Ur Leukocyte Esterase Negative Urine RBC 2 Urine WBC 12 H Ur Squamous Epith Cells 2 Urine Bacteria Rare Hyaline Casts < 1 Granular Casts 1 Salicylates < 3.0 Urine Opiates Screen Negative Urine Fentanyl Screen Negative Acetaminophen < 2.0 L Ur Barbiturates Screen Negative U Amphetamin/Meth Scrn Negative U Benzodiazepines Scrn Negative U Cocaine Metab Screen Positive A U Marijuana (THC) Screen Negative Ethyl Alcohol 166.7 H 11/13/24 11/13/24 11/13/24 19:53 20:35 23:29 WBC RBC Hgb Hct MCV MCH MCHC RDW Std Deviation Plt Count Neut % (Auto) Lymph % (Auto) Jones % (Auto) Eos % (Auto) Baso % (Auto) Neut # (Auto) Lymph # (Auto) Jones # (Auto) Eos # (Auto) Baso # (Auto) Immature Gran # (Auto) Absolute Nucleated RBC Immature Gran % Nucleated RBC % PT INR APTT Puncture Site Right Radial ABG pH 7.22 L ABG pCO2 34 ABG pO2 158 H ABG HCO3 14 L ABG O2 Saturation 99 H ABG Base Excess -13 L Oxygen Liter Flow FiO2 21 Sodium 145 Potassium 4.8 D Chloride 103 Carbon Dioxide 15.1 L Anion Gap 27 H BUN 9 Creatinine 1.7 H Estim Creat Clear Calc 65.7 eGFR 56 L BUN/Creatinine Ratio 5 L Glucose 192 H D Calculated Osmolality 292 Lactic Acid 16.0 H* 14.1 H* Calcium 8.2 L Corrected Calcium 8.2 L Phosphorus Magnesium Total Bilirubin 0.6 ALT 21 Alkaline Phosphatase 121 H D Troponin I Total Protein 7.2 Albumin 4.6 D Globulin 2.6 Albumin/Globulin Ratio 1.8 Beta-Hydroxybutyrate/Acetoacetate Ur Collection Type Urine Color Urine Clarity Urine pH Ur Specific [place] Urine Protein Urine Glucose (UA) Urine Ketones Urine Blood Urine Nitrite Urine Bilirubin Urine Urobilinogen (Auto) Ur Leukocyte Esterase Urine RBC Urine WBC Ur Squamous Epith Cells Urine Bacteria Hyaline Casts Granular Casts Salicylates Urine Opiates Screen Urine Fentanyl Screen Acetaminophen Ur Barbiturates Screen U Amphetamin/Meth Scrn U Benzodiazepines Scrn U Cocaine Metab Screen U Marijuana (THC) Screen Ethyl Alcohol 11/14/24 11/14/24 11/14/24 01:22 03:25 05:29 WBC 10.2 RBC 4.33 L Hgb 14.2 Hct 39.2 L MCV 91 MCH 32.8 MCHC 36.2 RDW Std Deviation 44.3 H Plt Count 217 Neut % (Auto) 66 Lymph % (Auto) 18 Jones % (Auto) 14 H Eos % (Auto) 0 Baso % (Auto) 0 Neut # (Auto) 6.8 Lymph # (Auto) 1.8 Jones # (Auto) 1.5 H Eos # (Auto) 0.0 Baso # (Auto) 0.0 Immature Gran # (Auto) 0.09 H Absolute Nucleated RBC 0.00 Immature Gran % 1 H Nucleated RBC % 0 PT INR APTT Puncture Site ABG pH ABG pCO2 ABG pO2 ABG HCO3 ABG O2 Saturation ABG Base Excess Oxygen Liter Flow FiO2 Sodium 142 140 Potassium 4.6 4.0 D Chloride 99 99 Carbon Dioxide 20.6 25.1 Anion Gap 22 H 16 BUN 13 11 Creatinine 1.6 H 1.5 H Estim Creat Clear Calc 69.8 74.6 eGFR > 60 > 60 BUN/Creatinine Ratio 8 L 7 L Glucose 123 H D 81 Calculated Osmolality 284 277 Lactic Acid 11.3 H* 4.9 H* Calcium 8.6 8.2 L Corrected Calcium 8.6 8.2 L Phosphorus 3.5 Magnesium 1.3 L Total Bilirubin 0.4 ALT 18 Alkaline Phosphatase 101 D Troponin I Total Protein 6.6 Albumin 4.8 4.2 D Globulin 2.4 Albumin/Globulin Ratio 1.8 Beta-Hydroxybutyrate/Acetoacetate Ur Collection Type Urine Color Urine Clarity Urine pH Ur Specific [place] Urine Protein Urine Glucose (UA) Urine Ketones Urine Blood Urine Nitrite Urine Bilirubin Urine Urobilinogen (Auto) Ur Leukocyte Esterase Urine RBC Urine WBC Ur Squamous Epith Cells Urine Bacteria Hyaline Casts Granular Casts Salicylates Urine Opiates Screen Urine Fentanyl Screen Acetaminophen Ur Barbiturates Screen U Amphetamin/Meth Scrn U Benzodiazepines Scrn U Cocaine Metab Screen U Marijuana (THC) Screen Ethyl Alcohol 11/14/24 11/14/24 11/14/24 07:30 11:02 11:22 WBC RBC Hgb Hct MCV MCH MCHC RDW Std Deviation Plt Count Neut % (Auto) Lymph % (Auto) Jones % (Auto) Eos % (Auto) Baso % (Auto) Neut # (Auto) Lymph # (Auto) Jones # (Auto) Eos # (Auto) Baso # (Auto) Immature Gran # (Auto) Absolute Nucleated RBC Immature Gran % Nucleated RBC % PT INR APTT Puncture Site ABG pH ABG pCO2 ABG pO2 ABG HCO3 ABG O2 Saturation ABG Base Excess Oxygen Liter Flow FiO2 Sodium 136 Potassium 4.0 Chloride 97 L Carbon Dioxide 23.8 Anion Gap 15 BUN 11 Creatinine 1.4 H Estim Creat Clear Calc 80.0 eGFR > 60 BUN/Creatinine Ratio 8 L Glucose 78 Calculated Osmolality 270 L Lactic Acid 2.7 H 1.2 Calcium 8.2 L Corrected Calcium 8.3 L Phosphorus 3.6 Magnesium Total Bilirubin ALT Alkaline Phosphatase Troponin I Total Protein Albumin 3.9 Globulin Albumin/Globulin Ratio Beta-Hydroxybutyrate/Acetoacetate Ur Collection Type Urine Color Urine Clarity Urine pH Ur Specific [place] Urine Protein Urine Glucose (UA) Urine Ketones Urine Blood Urine Nitrite Urine Bilirubin Urine Urobilinogen (Auto) Ur Leukocyte Esterase Urine RBC Urine WBC Ur Squamous Epith Cells Urine Bacteria Hyaline Casts Granular Casts Salicylates Urine Opiates Screen Urine Fentanyl Screen Acetaminophen Ur Barbiturates Screen U Amphetamin/Meth Scrn U Benzodiazepines Scrn U Cocaine Metab Screen U Marijuana (THC) Screen Ethyl Alcohol ABG Interpretation ABG results: 11/13/24 11/13/24 17:10 19:53 ABG pH 7.13 L* 7.22 L ABG pCO2 40 34 ABG pO2 169 H 158 H ABG HCO3 13 L 14 L ABG O2 Saturation 99 H 99 H ABG Base Excess -15 L -13 L Quality Measures Quality Measures none Assessment & Plan Assessment Current Active Medications: Generic Name Dose Route Start Last Admin Trade Name Drew PRN Reason Stop Dose Admin Acetaminophen 650 mg 11/13/24 19:53 Acetaminophen 325 Mg Tablet PO 12/13/24 19:52 Q6H PRN pain and Fever >100.4 Dextrose 25 ml 11/13/24 20:29 Dextrose 50%-Water Inj 50 Ml Syringe IV 12/13/24 20:28 Q15MIN PRN BG 50-70 responsive npo pt Dextrose 50 ml 11/13/24 20:29 Dextrose 50%-Water Inj 50 Ml Syringe IV 12/13/24 20:28 Q15MIN PRN BG <50 OR BG <70 & pt unresponsive Glucagon 1 mg 11/13/24 20:29 Glucagon Inj 1 Mg Vial IM Q15MIN PRN BG <70, and no IV access Lactated Ringer's 1,000 mls @ 100 mls/hr 11/13/24 20:30 11/14/24 10:32 Lactated Ringers IV 11/14/24 16:29 100 mls/hr .Q10H REBECCA Administration Metoclopramide HCl 5 mg 11/14/24 00:18 11/14/24 00:49 Metoclopramide Inj 5 Mg/Ml Vial 2 Ml IVP 12/14/24 00:29 5 mg Q8HR PRN Administration NAUSEA OR VOMITING Protocol Pantoprazole Sodium 40 mg 11/15/24 09:00 Pantoprazole 40 Mg Tablet PO 12/15/24 08:59 QDAY REBECCA Plan 28-year-old male with past medical history of previous suicidal attempts, depression, and previous hospitalizations due to suicidal systems was admitted to the hospital on 11/13/2024 for acute encephalopathy likely secondary to drug overdose, high anion gap metabolic acidosis with respiratory acidosis, and IVORY. #Acute Encephalopathy, resolved #Drug overdose #Hx of previous suicidal attempts #Hx of depression Patient came in after being found unresponsive in his home after he apparently took a bottle of naproxen. He does not recall taking any pills and last thing he remembers was going to bed yesterday evening. Spoke with poison control--said to continue supportive treatment for naproxen OD and watch AG. They said to admit and start on D10. He did ultimately become hypoglycemic and started on D10. -glucose checks every 4 hours -IV fluids -Hypoglycemia protocol ordered -Patient is currently on 1798 hold and will require crisis medical clearance. -psychosocial rehabilitation counselor consult #IVORY Cr 1.4, BUN 6 on admission. Possibly due to OD. Or prerenal in the setting of dehydration given nausea and vomiting. -maintenance fluids -avoid nephrotoxic agents -daily CMP #Polysubstance use #Alcohol use #Cocaine use Patient was positive for alcohol and cocaine Patient takes normally around 2 or 3 beers a day and last drink was yesterday evening, but yesterday he did drink around 30 beers -Will continue to monitor -licensed mental health counselor patient #High anion gap metabolic acidosis-resolved #Respiratory acidosis-resolved Disposition: Patient admitted to [facility] for OD Diet: Clear liquid and advance as tolerated GI prophylaxis: protonix DVT prophylaxis: SCDs Code: Full Case disclosed with Attending Dr. Thakkar. Joseline Moss, PGY1 Attending Provider Attestation/Addendum I attest that I was physically present for the evaluation, physical examination, lab and imaging review of the patient with the residents. I discussed the case with the residents and agree with the findings and plans of care as documented above. Demario Thakkar MD
--- NOTE | 2024-11-14 20:30 | PC.NURSE ---
Guero from poison control called for an update on patient, pending was medically cleared, pending crisis clearance. Patient denies any SI, and CIWA score is 0.
[2024-11-15] VITALS (7 sets, daily range): BP systolic 104–124; BP diastolic 56–78; PULSE 58–87; RESP 16–18; TEMP 36.1–36.6; O2SAT 95–98; BMI 24.3
[2024-11-15 05:19] LABS: Basophils % (Auto) 0 % (0-2.5); Eosinophils # (Auto) 0.1 Thou/mm3 (0.0-0.5); Eosinophils % (Auto) 1 % (0-10); Hematocrit 37.6 % (41.0-53.0); Hemoglobin 13.5 g/dL (13.5-16.0); Immature Granulocytes % (Auto) 0 % (0-0); Immature Granulocytes Auto 0.03 Thou/mm3 (0.00-0.00); Lymphocytes # (Auto) 2.5 Thou/mm3 (1.0-4.8); Lymphocytes % (Auto) 33 % (10-50); Mean Corpuscular HGB Conc 35.9 g/dl (31.0-37.0); Mean Corpuscular Hemoglobin 32.8 pg (25.0-35.0); Mean Corpuscular Volume 92 fL (80-100); Monocytes # (Auto) 0.7 Thou/mm3 (0.0-0.8); Monocytes % (Auto) 9 % (0-12); Neutrophils # (Auto) 4.4 Thou/mm3 (1.8-7.7); Neutrophils % (Auto) 57 % (37-80); Nucleated Red Blood Cell % 0 /100 WBC (0); Platelet Count 185 Thou/mm3 (140-440); RDW Standard Deviation 44.5 fL (35.1-43.9); Red Blood Count 4.11 Miln/mm3 (4.50-5.90); White Blood Count 7.8 Thou/mm3 (3.8-10.6)
[2024-11-15 06:09] LABS: Alanine Aminotransferase 23 U/L (10-49); Albumin, Serum 3.8 gm/dL (3.5-5.0); Albumin/Globulin Ratio 1.7 (1.2-2.2); Alkaline Phosphatase 97 U/L (46-116); Anion Gap 8 (7-16); BUN/Creatinine Ratio 14 Ratio (12-20); Bilirubin,Total 0.4 mg/dL (0.3-1.2); Blood Urea Nitrogen 11 mg/dL (9-23); Calcium 8.6 mg/dL (8.3-10.6); Calcium (Corrected) 8.8 mg/dL (8.5-10.1); Carbon Dioxide 30.7 mMol/L (20.0-31.0); Chloride 101 mMol/L (98-107); Creatinine (Component) 0.8 mg/dL (0.6-1.3); Estimated Creatinine Clearance 139.9 mL/min (>60); Globulin 2.2 gm/dL (2.3-3.5); Glucose 108 mg/dL (74-106); Osmolality,Calculated 279 (275-295); Potassium 3.9 mMol/L (3.4-5.1); Sodium 140 mMol/L (136-145); eGFR > 60 See Note
[2024-11-15] MEDS: PANTOPRAZOLE 40 MG TABLET PO (08:39)
--- NOTE | 2024-11-15 09:36 | PC.SS ---
SS update: patient will require a mental health evaluation once medically cleared.
--- NOTE | 2024-11-15 13:01 | ESPR_ITS ---
Documentation for date of: 11/15/24 Subjective Subjective Interval history: Patient examined at bedside. He has one-on-one sitter. Has no major complaints, eager to leave. Denies any suicidal ideation at this time. IVORY resovled with adequate fluids. Cr today 0.8. Other labs are unremarkable with resolved lactic acidosis. Vitals are stable. Patient's underlying associated conditions have resolved and he is cleared from medical standpoint. Poison control center contacted today--they have also cleared patient. D/c pending crisis evaluation. Exam Vital Signs Temp Pulse Resp BP Pulse Ox O2 Del Method O2 Flow Rate 97.0 F 82 18 110/74 98 Room Air 2 11/15/24 11:54 11/15/24 11:54 11/15/24 11:54 11/15/24 11:54 11/15/24 11:54 11/15/24 11:54 11/13/24 18:17 Narrative Exam General: younge male, No acute distress, cooperative HEENT: NCAT, No JVD noted. Mucosa moist. Pupils are equal and reactive to light bilaterally Cardiovascular: Normal S1 and S2. Regular rate and rhythm. Respiratory: Lungs are clear to auscultation bilaterally. No wheezing or crackles heard. Abdomen: Soft, nontender, not distended, normal bowel sounds. Skin: Warm to touch, dry, no rashes noted, has scars all over arms, some cutting scars noticed on forehead Musculoskeletal: No gross injuries. Able to move all 4 extremities. No pitting edema Neuro: Alert and oriented x3. No focal neuro deficits. Psych: Normal affect and mood Objective Labs 11/15/24 05:04 11/15/24 05:04 Labs: Laboratory Results - last 24 hr 11/15/24 05:04 WBC 7.8 RBC 4.11 L Hgb 13.5 Hct 37.6 L MCV 92 MCH 32.8 MCHC 35.9 RDW Std Deviation 44.5 H Plt Count 185 D Neut % (Auto) 57 Lymph % (Auto) 33 [place] % (Auto) 9 Eos % (Auto) 1 Baso % (Auto) 0 Neut # (Auto) 4.4 Lymph # (Auto) 2.5 [place] # (Auto) 0.7 Eos # (Auto) 0.1 Baso # (Auto) 0.0 Immature Gran # (Auto) 0.03 H Absolute Nucleated RBC 0.00 Immature Gran % 0 Nucleated RBC % 0 Sodium 140 Potassium 3.9 Chloride 101 Carbon Dioxide 30.7 Anion Gap 8 BUN 11 Creatinine 0.8 D Estim Creat Clear Calc 139.9 eGFR > 60 BUN/Creatinine Ratio 14 Glucose 108 H Calculated Osmolality 279 Calcium 8.6 Corrected Calcium 8.8 Magnesium 2.0 Total Bilirubin 0.4 ALT 23 Alkaline Phosphatase 97 Total Protein 6.0 Albumin 3.8 Globulin 2.2 L Albumin/Globulin Ratio 1.7 ABG Interpretation ABG results: 11/13/24 11/13/24 17:10 19:53 ABG pH 7.13 L* 7.22 L ABG pCO2 40 34 ABG pO2 169 H 158 H ABG HCO3 13 L 14 L ABG O2 Saturation 99 H 99 H ABG Base Excess -15 L -13 L Quality Measures Quality Measures none Assessment & Plan Assessment Current Active Medications: Generic Name Dose Route Start Last Admin Trade Name Freq PRN Reason Stop Dose Admin Acetaminophen 650 mg 11/13/24 19:53 Acetaminophen 325 Mg Tablet PO 12/13/24 19:52 Q6H PRN pain and Fever >100.4 Dextrose 25 ml 11/13/24 20:29 Dextrose 50%-Water Inj 50 Ml Syringe IV 12/13/24 20:28 Q15MIN PRN BG 50-70 responsive npo pt Dextrose 50 ml 11/13/24 20:29 Dextrose 50%-Water Inj 50 Ml Syringe IV 12/13/24 20:28 Q15MIN PRN BG <50 OR BG <70 & pt unresponsive Glucagon 1 mg 11/13/24 20:29 Glucagon Inj 1 Mg Vial IM Q15MIN PRN BG <70, and no IV access Metoclopramide HCl 5 mg 11/14/24 00:18 11/14/24 00:49 Metoclopramide Inj 5 Mg/Ml Vial 2 Ml IVP 12/14/24 00:29 5 mg Q8HR PRN Administration NAUSEA OR VOMITING Protocol Pantoprazole Sodium 40 mg 11/15/24 09:00 11/15/24 08:39 Pantoprazole 40 Mg Tablet PO 12/15/24 08:59 40 mg QDAY REBECCA Administration Plan 28-year-old male with past medical history of previous suicidal attempts, depression, and previous hospitalizations due to suicidal systems was admitted to the hospital on 11/13/2024 for acute encephalopathy likely secondary to drug overdose, high anion gap metabolic acidosis with respiratory acidosis, and IVORY. #Acute Encephalopathy, resolved #Drug overdose #Hx of previous suicidal attempts #Hx of depression Patient came in after being found unresponsive in his home after he apparently took a bottle of naproxen. He does not recall taking any pills and last thing he remembers was going to bed yesterday evening. Spoke with poison control--said to continue supportive treatment for naproxen OD and watch AG. They said to admit and start on D10. He did ultimately become hypoglycemic and started on D10. -glucose checks every 4 hours -IV fluids -Hypoglycemia protocol ordered -Patient is currently on 1798 hold and will require crisis medical clearance. -home health care social worker consult #IVORY-resolved Cr 1.4, BUN 6 on admission. Possibly due to OD. Or prerenal in the setting of dehydration given nausea and vomiting. -maintenance fluids -avoid nephrotoxic agents -daily CMP #Polysubstance use #Alcohol use #Cocaine use Patient was positive for alcohol and cocaine Patient takes normally around 2 or 3 beers a day and last drink was yesterday evening, but yesterday he did drink around 30 beers -Will continue to monitor -general counselor patient #High anion gap metabolic acidosis-resolved with fluids #Respiratory acidosis-resolved Disposition: Patient admitted to [facility] for OD, pending crisis eval Diet: Clear liquid and advance as tolerated GI prophylaxis: protonix DVT prophylaxis: SCDs Code: Full Case disclosed with Attending Dr. Rachel. Joseline Moss, PGY1 Attending Provider Attestation/Addendum I have examined the patient, reviewed labs and imaging findings, discussed the case with the resident(s), and reviewed entered orders. I agree with the plan of care as outlined in this note. Dr. Virginie MD
--- NOTE | 2024-11-15 17:17 | PD.RESDS ---
Planned Discharge Date 11/15/24 DS: Providers Provider Date of admission: 11/13/24 19:53 Primary care physician: Raheem Agudelo MD Admitting Provider: Jean Rachel MD Attending Provider on Admission: Jean Rachel MD Attending Provider on DC: Jean Rachel MD Discharging Provider: Jean Rachel MD DS: Diagnosis Problem List Completed Was Problem List Reviewed/Reconciled?: Yes Hospital Course Hospital Course Hospital course: Reason for hospitalization: AMS 2/2 naproxen overdose 28-year-old male with past medical history of previous suicidal attempts, depression, and previous hospitalizations due to suicidal systems was admitted to the hospital on 11/13/2024 for OD. Patient came into the ED after he was found unresponsive at his home taken a bottle of naproxen. On assessment patient was irritated and was confrontational when asked about the events that led him to come to the hospital. He mentioned that he was just drinking day before admission with some friends. Endorsed drinking 30 beers and also did some cocaine, but afterwards he just went to sleep and does not remember anything else afterwards. Last thing he remembers is waking up in ambulance. He denied attempting suicide or acts of self harm. Patient has hurt himself in the past with razors, but as of recently that he has not tried hurting himself. Three years ago, he was hospitalized under psychiatric hold due to similar presentation. Family history positive for psych issues but no suicides in family. Denied any stressors at this time. Is not on any medications. Initial labs were relevant for mild leukocytosis, high anion gap metabolic acidosis with respiratory acidosis, IVORY, UA positive for blood, and U-Tox positive for cocaine and alcohol levels were also elevated. Initial imaging included chest x-ray which was unremarkable. Poison control said to continue supportive treatment for naproxen OD and watch anion gap. They said to admit if hypoglycemic and start on D10. He did ultimately become hypoglycemic and was started on D10. During hospitalization, he was given adequate fluids with resolution of IVORY and lactic acidosis resolved. Other electrolyte abnormalities improved. Patient is cleared from medical standpoint along with poison control. student services director completed crisis evaluation and safety plan was implemented. He is to follow-up with mental health clinic and PCP. Patient is now in stable condition and ready for discharge. Recommendations were given as below. Discharge Recommendations: Abstain from alcohol/illicit substance use. Follow up tomorrow at mental health clinic. Follow up with PCP this Thursday. Please contact crisis number at any time. Hospital Diagnoses: #Acute Encephalopathy, resolved #Drug overdose #Hx of previous suicidal attempts #Hx of depression #IVORY-resolved #Polysubstance use #Alcohol use #Cocaine use #High anion gap metabolic acidosis-resolved with fluids #Respiratory acidosis-resolved The patient's management plan was discussed with my attending physician Dr. Rachel. Joseline Moss MD, PGY-1 Time spent discussing smoking cessation with patient: more than 10 minutes Time Spent with Patient Time attestation: Total time spent providing and/or coordinating discharge services: Time spent: Greater than 30 minutes Exam Vital Signs Temp Pulse Resp BP Pulse Ox O2 Del Method O2 Flow Rate 97.9 F 65 18 104/56 L 95 Room Air 2 11/15/24 16:00 11/15/24 16:00 11/15/24 16:11/15/24 16:11/15/24 16:11/15/24 16:00 11/13/24 18:17 Narrative Exam General: younge male, No acute distress, cooperative HEENT: NCAT, No JVD noted. Mucosa moist. Pupils are equal and reactive to light bilaterally Cardiovascular: Normal S1 and S2. Regular rate and rhythm. Respiratory: Lungs are clear to auscultation bilaterally. No wheezing or crackles heard. Abdomen: Soft, nontender, not distended, normal bowel sounds. Skin: Warm to touch, dry, no rashes noted, has scars all over arms, some cutting scars noticed on forehead Musculoskeletal: No gross injuries. Able to move all 4 extremities. No pitting edema Neuro: Alert and oriented x3. No focal neuro deficits. Psych: Normal affect and mood Discharge Plan Plan Patient Disposition: HOME (Self Care) Patient condition on transfer: Stable Prescriptions/Referrals Prescriptions/Med Rec: No Action No Known Home Medications Referrals: Raheem Agudelo MD [Primary Care Provider] - Patient/Caregiver Discharge Instructions Other Discharge Activity Instructions:: Abstain from alcohol/illicit substance use. Follow up tomorrow at mental health clinic. Follow up with PCP this Thursday. Please contact crisis number at any time. Education Materials: [facility], [facility] Print Language: Bur[place]ian Stand Alone Forms: Maggie Award Info., Patient Portal Info Letter Discharge Order Discharge Orders: Discharge (Routine); Ordered 11/15/24 Ordered By: Joseline Moss Quality Discharge Quality Measures VTE prophylaxis Attestestation MD Attestation I have examined the patient, reviewed labs and imaging findings, discussed the case with the resident(s), and reviewed entered orders. I agree with the plan of care as outlined in this note. Time Spent: [address] Virginie MD
--- NOTE | 2024-11-15 17:44 | PC.SS ---
Patient is a 28-year old male who presented to the ED on 11/13/24 for an overdose. Patient was admitted for treatment and medical team has indicated that the patient is medically cleared for a mental health evaluation. Upon chart review, patient's toxicology was positive for cocaine with high level of alcohol intake during this visit, there was no history with director of social services for mental health reasons indicated. ASW met with the patient who presented to be alert and oriented to person, place and situation. ASW introduced self, role and reason for contact. ASW disclosed to the patient the limits of confidentiality. Patient is cooperative and able to engage in assessment with answering questions appropriately. Patient appears pleasant and well kempt. Patient was able to confirm demographic information listed on facesheet. Patient identified his significant other, Elvira Romero as his emergency contact . Patient informs he and Elvira live together. Patient reports being independent with ADL?s, ambulating without any issues. Patient denies use of DME in the home or any medical problems. Patient informs he is currently employed. Regarding the reason for patient?s hospital visit, the patient informs his understanding of why he is here today is due to him being intoxicated. Patient informs he was brought in by ambulance on Thursday11/13/24 and does not have clear recollection of how he got here. Per patient, on Thursday he was hanging out with family and they were drinking heavily. Patient states they all drank about 30 beers, himself included. Per patient he does not recall taking any pill medications or any kind of pill intake. Patient reports having an unintentional overdose. Patient also admits to cocaine use of this day and states that he does not normally use this substance. Per patient he informs that his behavior was irresponsible. Patient was asked about any suicidal ideations, patient denied this patient states he has no intention to end his life as he shares the following ?I am happy?, ?I have a good job? and ?I want to get ?. Patient also denies homicidal ideation. Patient denies audio and visual hallucinations. Patient informs he has a history of anxiety and depression. Patient denies taking psychotropic medication. Patient informs he was previously connected to outpatient mental health services through [facility] with a therapist. Patient informs he has history of self-harm with razor cuts about almost ten years ago and was taken to [facility] [place]. During contact, it was observed the patient having old razor cuts on his arms from scarring that was left from that incident. Patient demonstrated to ASW and denied having any recent or current cuts including open wounds. Per patient is aligned with counseling services due to DUI requirements. Patient also reports having probation services. Patient informs he consumes alcohol daily about 2-3 beers a day. Patient admits to consumption of cocaine, however reports he is not a daily or regular user. Patient is receptive to receiving services and resources if necessary and willing to safety plan if appropriate. Patient reports that his coping skills are staying busy: being with family and working. Patient reports having a good support network from significant other Elvira and his mother, Ivone Malagon , who he provides verbal consent to speak with both parties for collateral information. ? Collateral contact: ASW spoke with patient?s significant other, Elvira. She informs she was the one who contacted EMS on Thursday as the patient was unresponsive and altered. Per Elvira, the patient was found intoxicated and with an empty pill bottle of medication for leg cramps, which she believes had 10 pills left. Elvira states, patient may have taken the medication as he was taking antibiotics for tooth pain the previous days, she informs she does not believe this was a suicide attempt. Elvira informs ?I have no concern with him being alone or harming himself?. Elvira indicates the patient had a lot to drink on this day including beer and cocaine intake. Per Elvira, patient does not normally consume cocaine just alcohol about 2 cans of beer after work. Per Elvira, she does not have any concern with any suicidal intentions of the patient?s behalf. She informs since she has been in relationship with him he has been doing really well with coping with his anxiety and managing to sustain employment and engage in services to complete his DUI requirements. Elvira reports that there are no firearms in the home or weapons. Per Elvira she is willing to safety plan and monitor the patient, ensuring mental health connection and connecting him to substance abuse resources. Elvira states she works as an SS caregiver and has a flexible work schedule that allows her to be off for the next few days. ASW then contacted the patient?s mother, Ivone Malagon for additional information. Ivone reports she does not believe this was a suicide attempt. Ivone informs patient has a history with mental health from age of 20 when he was placed on a hold for self-harming with a razor. Per Ivone, this has not been a concern for her or the family for the last 10 years. She informs, the concern they have is the patient?s alcohol intake, which has gotten better over the years, however has been re-occurring concern as his behavior at times is ?stupid?. Ivone however reports the patient is aligned with services now and is getting support from significant other and herself including their family to complete DUI courses. Ivone reports ?he is not like before?, when asked to clarify, she informs she has no concern for suicide on behalf of the patient. Ivone informs patient ?enjoys working? and is happy when around his brothers and family. Ivone informs she no concerns for patient being discharged at this time. After clinical consultation with STAFFING RN, Cherri Pierre, it was determined the patient is able to discharge with safety plan in place. Patient denies intentional overdose. Patient?s significant other, Elvira agrees to monitor the patient for the next 72 hours after being discharged from the Hospital, ensures there are no firearms or weapons in the home and informs she will monitor medications in the home closely. Patient is also receptive to substance abuse services and mental health services. Patient was scheduled for a mental health follow up for 11/16/24 at 2pm with [facility] with provider America and a follow up for primary care for 11/18/24 at 10:15am with provider Justen at [facility]. Patient was provided with all of the information to his appointments and agreeable to follow with services. Patient was also provided with psychoeducation on healthy coping skills and he was receptive. Patient was additionally provided with crisis contact information and local authority information in case of an emergency. Patient and Elvira were encouraged to return to call crisis, law enforcement or return to Emergency Department if necessary. Attending Dr. Rachel, bed side nurse Marti and resident Dr. Moss updated on discharge disposition with safety plan in place.
== END 2024-11-15 18:24 | disposition home or self-care (01) | DRG 817 ==
LOC: SERX 18:08 → SERHOLD 20:23 → S3NX 23:29 → SERHOLD 11-14 06:33
PROVIDERS: Family Medicine; Student in an Organized Health Care Education/Training Program; Admitting Provider Student in an Organized Health Care Education/Training Program; Emergency Provider Emergency Medicine; PCP Family Medicine; Visit Provider Student in an Organized Health Care Education/Training Program
DX: T39.312A Poisoning by propionic acid derivatives, intentional self-harm, initial encounter (principal); G92.8 Other toxic encephalopathy; Z91.51 Personal history of suicidal behavior; N17.9 Acute kidney failure, unspecified; F32.A Depression, unspecified; E86.0 Dehydration; D72.829 Elevated white blood cell count, unspecified; F14.90 Cocaine use, unspecified, uncomplicated; Y90.6 Blood alcohol level of 120-199 mg/100 ml; E87.4 Mixed disorder of acid-base balance; F17.200 Nicotine dependence, unspecified, uncomplicated; E16.2 Hypoglycemia, unspecified
CPT/HCPCS: 36415; 36600; 70450; 71045; 80053; 80069; 80307; 80320; 80329; 81001; 82010; 82803; 83605; 83735; 84484; 85025; 85610; 85730; 93005; 93225; 94640; 96127; 96361; 96374; 96375; 99291; J2405; J2470; J2765; J3475; J3490; J7030; J7120; A9270; G0480